=== PATIENT | female | born 1995 | race Caucasian/White ===

== ENCOUNTER 2020-05-23 17:34 | Emergency (ER) | payer OTHER, SELFPAY | END 2020-05-23 19:08 | disposition left against medical advice (07) | PROVIDERS: Emergency Provider Emergency Medicine | DX: O26.91 Pregnancy related conditions, unspecified, first trimester (principal); Z3A.01 Less than 8 weeks gestation of pregnancy; Z20.828 Contact with and (suspected) exposure to other viral communicable diseases | CPT/HCPCS: 99281 ==

== ENCOUNTER 2025-07-18 09:27 | Emergency (ER) | payer OTHER, SELFPAY ==
--- NOTE | ~2025-07-18 | US_ITS ---
EXAMINATION: US PELVIS TRANSABDOMINAL AND TRANSVAGINAL HISTORY: abnormal uterine bleeding COMPARISON: Comparison is made with the prior examination dated 07/17/2019. TECHNIQUE: Transabdominal and endovaginal real-time 2D harris-scale ultrasound was performed. FINDINGS: Uterus: The uterus is normal in size, measuring 10.9 x 4.1 x 4.7 cm. Myometrium has a normal echotexture. No fibroids are identified. Endometrium: The endometrial stripe is heterogeneous, measuring 9 mm in thickness. There are nabothian cysts in the cervix. Right ovary: The right ovary measures 4.5 x 2.1 x 2.3 cm. The right ovary is normal in size and echotexture. Left ovary: The left ovary measures 4.3 x 1.7 x 1.7 cm. The left ovary is normal in size and echotexture. Pelvic fluid: none. US/US pelvic and transvaginal IMPRESSION: Heterogeneous appearing endometrial stripe measuring 9 mm in thickness. Electronically signed by: Shamar Rivera MD 07/18/2025 02:49 PM [facility] [place]
[2025-07-18 09:43] VITALS: BP 141/60; PULSE 73; RESP 20; TEMP 36.8; O2SAT 100; BMI 37.8
--- NOTE | 2025-07-18 09:46 | ED.GENADULT ---
HPI - General Adult General Chief complaint: Vaginal Bleeding Stated complaint: General Medical Time Seen by Provider: 07/18/25 13:45 History of Present Illness ED Provider: LUIS ENRIQUE HPI narrative: 29 F with AUB, steady bleeding, she reports recently starting on norethindrone minimal relief some mild lower abdominal cramping she has use several pads per day but not completely soaking them. No lightheadedness symptoms Related Data Previous Rx's ?Medication ?Instructions ?Recorded tranexamic acid 650 mg tablet 1,300 mg (2 x 650 mg) PO TID 5 07/18/25 days #30 tabs Allergies Allergy/AdvReac Type Severity Reaction Status Date / Time No Known Allergies Allergy Verified 07/18/25 09:48 [facility] Social History Social History Advance Directives: No Advance Directives Information Provided: Yes Do you have a plan to hurt others: No Plan Physical Exam ED Exam Exam: EXAM: Gen: Alert, awake, well appearing, well hydrated. Head: Atraumatic Eyes: Anicteric, Normal conjunctiva. ENT: Moist mucosa, no pallor. ? Neck: Supple. Skin: ?No observable rash or bruising on exposed or examined skin Respiratory: Breathing comfortably, No distress.Clear to auscultation bilaterally, symmetric chest expansion, No wheeze, rales, ronchi. Cardiovascular: Regular rate and rhythm. No murmurs or rub. Well perfused periphery, warm extremities. No edema. ? Abdominal: No focal tenderness. Soft, no objective distension. No palpable masses or obvious organomegaly. ?No guarding, no rebound tenderness or other peritoneal findings. : No flank tenderness. Deferred pelvic Neuro: Alert. Gross movement of all extremities intact. ? Psych: Calm. Cooperative. MSK: No grossly visible deformity. Vital signs: See flowsheet Vital Signs: Vital Signs - 24 hr 07/18/25 11:15 07/18/25 14:04 07/18/25 16:36 Temperature 98.0 F 98.3 F 98.3 F Pulse Rate 68 61 61 Respiratory Rate 20 18 18 Blood Pressure 116/68 110/65 110/65 Pulse Oximetry 100 100 100 Oxygen Delivery Method Room Air Room Air Room Air BMI result Body Mass Index 37.8 Course Course Course Narrative: Rapid medical examination performed in triage by Claudia Moreno PA-C: Patient is a 29 year old assigned female at presenting to the emergency department with vaginal bleeding. Patient states that she has had several months of vaginal bleeding, saw her OBGYN at [facility] who started her on a medication that stopped her bleed but she ran out of the medication and now it is back. Patient is having lower abdominal pain. Detailed physical exam and review of systems are deferred to the sample grinder. Labs ordered. Patient placed back in the waiting room pending room availability and results. Medications Administered Discontinued Medications Generic Name Dose Route Start Last Admin Trade Name Ken PRN Reason Stop Dose Admin Acetaminophen 975 mg 07/18/25 13:08 07/18/25 13:35 Acetaminophen 325 Mg Tablet PO 07/18/25 13:09 975 mg ONCE ONE Administration Ketorolac Tromethamine 30 mg 07/18/25 15:11 07/18/25 15:30 Ketorolac Tromethamine 30 Mg/Ml Vial IM 07/18/25 15:12 30 mg ONCE ONE Administration Medical Decision Making Medical Decision Making MDM Narrative: Medical Decision Makin-year-old female non with abnormal uterine bleeding does not appear pale or ill she is not hemodynamically unstable. No clear anemic symptomatology. No described vaginal trauma or dyspareunia. Shared decision-making patient agreeable for TXA close follow up with PCP/personnel research scientist Preliminary Favored Differential Diagnosis: Abnormal uterine bleeding, dysmenorrhea anemia among additional considered etiologies Testing Interpreted Independently: ?See below for details Radiology or Lab testing Results Reviewed: ?See below for details Consults: ?See below for details Independent Historians/External Chart Reviews: ?See below for details Social Determinants of Health Impacting MDM/Planning: ?See below for details Lab Data 07/18/25 10:36 07/18/25 10:36 Labs: Lab Results 07/18/25 Range/Units 10:36 WBC 7.4 (4.8-10.8) X10*3/uL RBC 4.25 (4.20-5.50) X10*6/uL Hgb 11.9 L (12.0-16.0) g/dl Hct 36.4 L (37.0-47.0) % MCV 85.6 (80.0-98.0) fL MCH 28.0 (27.0-33.0) pg MCHC 32.7 (31.0-35.0) g/dl RDW 13.0 (11.0-16.0) % Plt Count 317 (160-400) X10*3/uL MPV 10.4 (9.4-12.3) fL Immature Gran % (Auto) 0.3 (0.0-0.4) % Neut % (Auto) 60.4 (45-73) % Lymph % (Auto) 30.7 (20-40) % Mitchell % (Auto) 7.4 (2-11) % Eos % (Auto) 0.9 (0-4) % Baso % (Auto) 0.3 (0-2) % Lymph # (Auto) 2.3 (1.2-4.9) X10*3/uL Mitchell # (Auto) 0.6 (0.1-1.2) X10*3/uL Eos # (Auto) 0.1 (0.0-0.4) X10*3/uL Baso # (Auto) 0.0 (0.0-0.2) X10*3/uL Abs Immat Gran (auto) 0.02 (0.00-0.03) X10*3/uL Absolute Neuts (auto) 4.5 (2.0-8.3) x10*3/uL Absolute Nucleated RBC 0.000 (0.0-0.012) X10*3/uL Nucleated RBC % (auto) 0.0 (0.0-0.2) /100WBC PT 12.4 (11.2-13.5) SEC INR 1.0 (0.9-1.1) Sodium 139 (135-145) mmol/L Potassium 3.8 (3.3-5.1) mmol/L Chloride 108 (96-108) mmol/L Carbon Dioxide 27 (22-29) mmol/L Anion Gap 8 L (12-20) BUN 17 H (9-16) mg/dL Creatinine 0.63 (0.5-1.4) mg/dL Estim Creat Clear Calc 129.9 Estimated GFR > 60 Random Glucose 87 (60-115) mg/dL Calcium 8.8 (8.4-10.2) mg/dL Magnesium 1.9 (1.6-2.6) mg/dL Total Bilirubin 0.4 (0.0-1.0) mg/dL AST 18 (5-31) U/L ALT 17 (0-31) U/L Alkaline Phosphatase 82 (39-117) U/L Total Protein 7.4 (6.5-8.0) g/dL Albumin 4.4 (3.5-5.0) g/dL Beta HCG, Quant < 2 mIU/mL Discharge Plan Discharge Clinical Impression: Vaginal bleeding, Menometrorrhagia Patient Disposition: Home, Self-Care Instructions: Menorrhagia (ED) Additional Instructions: Today in the emergency department you were evaluated for heavy menstrual bleeding. You did not have a significant or substantial blood count drop. We gave you intramuscular ketorolac and anti-inflammatory medication and Tylenol. Your hemoglobin level was 11.9 most recent comparison we had was 12.9 in 2019. We have prescribed TXA. Please discuss taking this with your primary personnel research scientist Prescriptions: New tranexamic acid 650 mg tablet 1,300 mg PO TID 5 Days Qty: 30 0RF Stand Alone Forms: Work/School Release Interventions: ED Discharge Assessment Last Done: 07/18/25 16:36 Discharge Date/Time: 07/18/25 16:36 Print Language: Andorran
[2025-07-18 10:40] LABS: MANUAL DIFF FLAG NO
[2025-07-18 10:42] LABS: Hematocrit 36.4 % (37.0-47.0); Hemoglobin 11.9 g/dl (12.0-16.0); Imm Gran Abs Auto 0.02 X10*3/uL (0.00-0.03); Imm Gran Pct Auto 0.3 % (0.0-0.4); Lymphocytes Absolute Auto 2.3 X10*3/uL (1.2-4.9); Mean Corpuscular HGB Conc 32.7 g/dl (31.0-35.0); Mean Corpuscular Hemoglobin 28.0 pg (27.0-33.0); Mean Corpuscular Volume 85.6 fL (80.0-98.0); NRBC Abs Auto 0.000 X10*3/uL (0.0-0.012); NRBC Pct Auto 0.0 /100WBC (0.0-0.2); Platelet Count 317 X10*3/uL (160-400); Red Blood Count 4.25 X10*6/uL (4.20-5.50); White Blood Count 7.4 X10*3/uL (4.8-10.8)
[2025-07-18 10:47] LABS: INTERNATIONAL NORM RATIO 1.0 (0.9-1.1); Prothrombin Time 12.4 SEC (11.2-13.5)
[2025-07-18 10:58] LABS: Alanine Aminotransferase 17 U/L (0-31); Albumin Level 4.4 g/dL (3.5-5.0); Alkaline Phosphatase 82 U/L (39-117); Anion Gap 8 (12-20); Aspartate Amino Transferase 18 U/L (5-31); Blood Urea Nitrogen 17 mg/dL (9-16); Calcium 8.8 mg/dL (8.4-10.2); Carbon Dioxide 27 mmol/L (22-29); Chloride 108 mmol/L (96-108); Creatinine Clr Calc Pharmacy 129.9; Estimated Glomerular Filt Rate > 60; Magnesium 1.9 mg/dL (1.6-2.6); Potassium 3.8 mmol/L (3.3-5.1); Sodium 139 mmol/L (135-145); Total Protein 7.4 g/dL (6.5-8.0)
[2025-07-18 11:15] VITALS: BP 116/68; PULSE 68; RESP 20; TEMP 36.7; O2SAT 100
[2025-07-18 14:04] VITALS: BP 110/65; PULSE 61; RESP 18; TEMP 36.8; O2SAT 100
[2025-07-18 16:36] VITALS: BP 110/65; PULSE 61; RESP 18; TEMP 36.8; O2SAT 100
--- OUTSIDE RECORDS SUMMARY | 2025-07-18 20:49 | XMS_ITS | Clinical Summary ---
Author Organization [facility] Address [address] [place] [phone] Phone Care Team Providers Care Wind Technician Name Role Phone Physician, Pcp Unknown Primary Care Provider Court vailable Allergies No known active allergies Medications hydrOXYzine HCL (ATARAX) 25 mg tablet Take 1 tablet (25 mg total) by mouth every 6 (six) hours for 3 days. 12 tablet 12/02/2024 Active Active Problems No known active problems Social History Tobacco Use Types Packs/Day Years Used Date Smoking Tobacco: Never Tobacco Cessation:Counseling Given: Not Answered Alcohol Use Standard Drinks/Week Comments Never 0 (1 standard drink = 0.6 oz pur e alcohol) Comments Unknown Sex and Gender Information Value Date Recorded Sex Assigned at Not on file Legal Sex Female 9:12 AM EST Gender Identity Not on file Sexual Orientation Not on file Last Filed Vital Signs Vital Sign Reading Time Taken Comments Blood Pressure 122/69 12/02/2024 11:30 AM EDT Pulse 74 12/02/2024 11:30 AM EDT Temperature 37 C (98.6 F) 12/02/2024 11:30 AM EDT Respiratory Rate 16 12/02/2024 11:30 AM EDT Oxygen Saturation 99% 12/02/2024 11:30 AM EDT Inhaled Oxygen Concentration - - Weight 79.4 kg (175 lb) 12/02/2024 11:30 AM EDT Height 152.4 cm (5') 12/02/2024 11:30 AM EDT Body Mass Index 34.18 12/02/2024 11:30 AM EDT Plan of Treatment Health Maintenance Due Date Last Done Comments Hepatitis B Vaccines (1 of 3 - 19+ 3-dose series) 2014 Cervical Cancer Screening: P ap Smear 2016 HPV Vaccines (1 - 3-dose SCD M series) 2022 Depression Screening 08/09/2024 HIV Screening 12/02/2024 Hepatitis C Screening 12/02/2024 Social Influencers of Health Screening 12/02/2024 COVID-19 Vaccine (3 - 2024-2 6 season) 2025 02/13/2021, 01/16/2021 Influenza Vaccine (#1) 2025 , 05/01/2019 DTaP,Tdap,and Td Vaccines (2 - Td or Tdap) 11/26/2030 11/26/2020 RSV Immunization Adult Patients (1 - 1-dose 75+ series) 2070 Varicella Vaccines Aged Out 05/03/2019 No longer eligible based on patient's age to complete this topic MMR Vaccines Aged Out 11/20/2024, 10/17/2024 No longer eligible based on patient's age to complete this topic HIB Vaccines Aged Out No longer eligi ble based on patient's age to complete this topic Hepatitis A Vaccines Aged Out No long er eligible based on patient's age to complete this topic IPV Vaccines Aged Out No longer eligi ble based on patient's age to complete this topic Meningococcal ACWY Vaccine Aged Out N o longer eligible based on patient's age to complete this topic Meningococcal B Vaccine Aged Out No l onger eligible based on patient's age to complete this topic Pneumococcal Vaccine: Pediatrics (0 to 5 Years) and At-Risk Patients (6 to 49 Years) Aged Out No longer eligible b ased on patient's age to complete this topic RSV Immunization Patients Under 20 months Aged Out No longer eligible b ased on patient's age to complete this topic Care Teams Wind Technician Relationship Specialty Start Date End Date Physician, Pcp Unknown PCP - General 12/02/24
== END 2025-07-18 16:36 | disposition home or self-care (01) ==
PROVIDERS: Physician Assistant Medical; Emergency Provider Emergency Medicine
DX: N92.1 Excessive and frequent menstruation with irregular cycle (principal); N93.9 Abnormal uterine and vaginal bleeding, unspecified; R10.30 Lower abdominal pain, unspecified
CPT/HCPCS: 36415; 76830; 76856; 80053; 83735; 84702; 85025; 85610; 96372; 99283; 99284; J1885

== ENCOUNTER → 2025-07-18 12:54 | Outpatient (BNV) | payer OTHER, SELFPAY | PROVIDERS: Emergency Provider Emergency Medicine; Visit Provider Radiology Diagnostic Radiology | DX: N88.8 Other specified noninflammatory disorders of cervix uteri (principal); N93.9 Abnormal uterine and vaginal bleeding, unspecified | CPT/HCPCS: 76830; 76856 ==